=== PATIENT | female | born 1975 | race Caucasian/White ===

== ENCOUNTER 2023-10-18 01:41 | Day surgery (SDC) | payer BC, SELFPAY ==
--- NOTE | 2023-10-06 17:38 | PC.NURSE ---
Report to the Outpatient Waiting Room, entrance under the green pavilion located off [facility], at time 0900 on date 10/18/23. Planned Procedure Time: 1100. Time changes happen often and if your time is changed the preop area will call you the afternoon before. - You and your visitor will be asked to self-screen and do not enter if you have any COVID symptoms. - A mask is optional within the hospital at this time. Patients may have clear liquids (water, carbonated beverages, clear teas, apple juice) until 3 hours prior to surgery with a maximum of 20 ounces. 0800 - No food from midnight until time of surgery - Infants may have breast milk until 4 hours before surgery, formula 6 hours prior to surgery. - Children will be allowed to drink immediately following surgery. If applicable, please bring a bottle or sippy cup to assist with drinking. Juice, water, soda, and popsicles are readily available. For infants on formula, please bring formula the day of surgery. Pacifiers are allowed. Take the following medications with a SIP of water the morning of surgery: none DO NOT STOP ANY OF YOUR OTHER PRESCRIPTION MEDICATIONS PRIOR TO SURGERY ?EXCEPT THE FOLLOWING Medications to discontinue per physician multivitamins, nexium Date to take last dose Please no make-up, nail divehi, hairspray, perfume, deodorant, or body powder the day of surgery. No jewelry (including any body piercings) or valuables the day of surgery, leave them at home. Please take a shower or bath the night before, or the morning of, surgery with an antibacterial soap. Wear comfortable, loose fitting clothing. Children are encouraged to wear pajamas. - Jewelry must be removed prior to entering the operating room. Rings and piercings that are not removed may be cut off. - The hospital will not accept responsibility for valuables. - Please leave all valuables, including medications, at home the day of surgery. If you are going home after surgery, a licensed transit driver must drive you home. - NO public transportation without another adult if you receive anesthesia. - We recommend that an adult stay with you for 24 hours following discharge. - We also recommend that you do not drive, make important decision, drink alcoholic beverages, or take any drugs that were not prescribed by your health care provider for at least 24 hours after your discharge time. For Pediatric surgeries, we recommend two adults accompany the child home. Follow any additional instructions given to you from your surgeon. If you or anyone in your household have experienced Covid symptoms in the past week, please notify your surgeon or the nurse liaison at the phone number below for possible testing. Telephone instructions given to Patient- Shannon Walter and asked if any additional questions and then verbalized understanding. Patient advised to call surgeon office or pre surgery nurse liaison [phone] if any additional questions.
[2023-10-06 17:49] VITALS: BMI 41.6
--- NOTE | 2023-10-18 07:09 | P.PNAN_ITS ---
Anes - Initial Pre Proc Eval Procedure: Operation Date: 10/18/23 10:15 Proposed Procedures p Hysteroscopy Dilation and Curettage - Stephanie Friend MD Date/Time: 10/18/23 07:09 Surgeon: Stephanie Friend MD Pre Op Diagnosis: Abnormal Uterine Bleeding Patient Data Age: 48 Gender: F Height: 1.63 m Weight: 110 kg Allergies Allergy/AdvReac Type Severity Reaction Status Date / Time paroxetine Allergy Swelling Verified 10/18/23 08:12 of Lip/Tongue/Throat Home Medications Medication Instructions Recorded Confirmed Type Adults Multivitamin 1 tab-cap PO HS 10/06/23 10/06/23 History Nasacort 2 spray intranasal HS 10/06/23 10/06/23 History Zyrtec 10 mg PO HS 10/06/23 10/06/23 History esomeprazole magnesium 40 mg 40 mg PO DAILY 10/06/23 10/06/23 History capsule,delayed release famotidine 40 mg tablet 40 mg PO HS 10/06/23 10/06/23 History hydroxyzine pamoate 25 mg capsule 25 mg PO HS 10/06/23 10/06/23 History Patient hx anesthesia problems: none Family hx anesthesia problems: none Results Review: All pre-operative results and documents have been reviewed as part of the pre- operative evaluation. [facility] Past Medical History Medical History (Updated 10/18/23 @ 07:44 by Stephanie Friend MD) Anxiety GERD (gastroesophageal reflux disease) History of depression History of kidney stones History of spontaneous 2014 (normal spontaneous vaginal delivery) x2 Surgical History Surgical History (Updated 10/18/23 @ 07:43 by Stephanie Friend MD) History of cholecystectomy History of tubal ligation Social History Social History Smoking packs per day: 0.25 Smoking cigarettes per day: 5.0 Years smoked: 4 Smoking pack-years: 1.00 Smoking status: Former smoker Tobacco type: cigarettes Spiritual care concerns: No Anes - Eval Final PreProcedure Day of Procedure 10/18/23 07:09 Patient weight: morbidly obese Heart: regular rate and rhythm Lungs: clear to auscultation Airway: Mallampati scale class II Neurological: alert and oriented Last oral intake: >/= 8 hours ASA classification: II Emergent: no Anesthetic plan: proceed Anesthesia type and monitoring: general GIVS and standard monitoring Results Review: All pre-operative results and documents have been reviewed as part of the pre- operative evaluation. Informed Consent: The patient's anesthetic plan and its attendant risks and benefits were discussed with the patient/family/POA. Questions were solicited and answers provided to the satisfaction of the patient/family/POA.
--- NOTE | 2023-10-18 07:40 | P.HP_ITS ---
History of Present Illness History of Present Illness Consent: Risks, benefits, and alternatives have been discussed and questions answered. Patient agrees to proceed with procedure. Chief complaint: Abnormal Uterine Bleeding Narrative: Shannon Walter is a 48 year old female with prolonged bleeding episode. Pelvic ultrasound and blood work are normal. It was recommended to proceed with D&C hysteroscopy to evaluate the endometrium. Risks of infection, bleeding, perforation, and possible pathology are reviewed. Patient voices understanding and agrees to proceed. Review of Systems Review of Systems: not repeated day of surgery; patient states no changes in status [facility] Past Medical History Medical History (Updated 10/18/23 @ 07:44 by Stephanie Friend MD) Anxiety GERD (gastroesophageal reflux disease) History of depression History of kidney stones History of spontaneous 2014 (normal spontaneous vaginal delivery) x2 Surgical History Surgical History (Updated 10/18/23 @ 07:43 by Stephanie Friend MD) History of cholecystectomy History of tubal ligation Social History Social History Smoking packs per day: 0.25 Smoking cigarettes per day: 5.0 Years smoked: 4 Smoking pack-years: 1.00 Smoking status: Former smoker Tobacco type: cigarettes Spiritual care concerns: No Meds Home Medications and Allergies Home Medications Medication Instructions Recorded Confirmed Type Adults Multivitamin 1 tab-cap PO HS 10/06/23 10/06/23 History Nasacort 2 spray intranasal HS 10/06/23 10/06/23 History Zyrtec 10 mg PO HS 10/06/23 10/06/23 History esomeprazole magnesium 40 mg 40 mg PO DAILY 10/06/23 10/06/23 History capsule,delayed release famotidine 40 mg tablet 40 mg PO HS 10/06/23 10/06/23 History hydroxyzine pamoate 25 mg capsule 25 mg PO HS 10/06/23 10/06/23 History Allergies Allergy/AdvReac Type Severity Reaction Status Date / Time PAROXETINE HCL Allergy Severe THROAT Uncoded 02/17/12 11:40 SWELLING Exam Const: General: healthy appearing and alert Orientation/consciousness: patient oriented x3 Resp: Effort & Inspection: normal respiratory effort GI: GI Palp: Yes Soft to palpation, No Tenderness to palpation present (GI) and No Palpable mass present : External Female Exam: normal external appearance Speculum Exam - Vagina: normal appearance of the vagina and normal vaginal discharge Speculum Exam - Cervix: normal appearance of the cervix Bimanual exam- vagina & uterus: uterine size normal and consistency normal Bimanual Exam- Adnexa, other: normal adnexae and No adnexal tenderness Neuro: General: patient oriented x3 Assessment and Plan Assessment and plan (1) Menorrhagia: Code(s): N92.0 - Excessive and frequent menstruation with regular cycle Status: Acute Assessment and Plan: plan to proceed with D&C hysteroscopy
--- NOTE | 2023-10-18 07:40 | WPDHPUPDATE1 ---
History and Physical Update Update Date/Time: 10/18/23 07:40 History and Physical has been reviewed, including an updated exam of the patient. There are NO changes in the patient's condition. Risks, benefits, and alternatives have been discussed and questions answered. Patient agrees to proceed with procedure.
[2023-10-18 08:20] VITALS: BP 153/102; PULSE 89; RESP 18; TEMP 36.4; O2SAT 100
[2023-10-18] MEDS: LACTATED RINGERS 1,000 ML 30 ML IV CONT (08:30)
[2023-10-18] MEDS: ACETAMINOPHEN 500 MG TABLET 1000 MG PO (08:32)
[2023-10-18 09:20] VITALS: BP 130/81; PULSE 83
--- NOTE | 2023-10-18 10:56 | P.OP_ITS ---
Procedure Note - Detailed Date of Procedure 10/18/23 Pre-op Diagnosis Abnormal Uterine Bleeding Post-op Diagnosis Same Procedure Performed D&C hysteroscopy Surgeon Stephanie Friend MD Anesthesia General ( general IV sedation with LMA) Findings The uterus sounds to 10cm and the endometrium appears grossly normal. Description of Procedure The patient is taken to the operating room and placed under anesthesia in the dorsal lithotomy position. She was prepped and draped in usual sterile fashion. [place] speculum was placed in the vagina and the cervix grasped on the anterior lip with a tenaculum. The uterus is sounded to 10cm. The diagnostic hysteroscope was placed and the endometrium appears grossly normal . The hysteroscope was removed. The sharp curette is used to curette the endometrium until a good uterine cry was noted in all areas. All instruments are removed. Sponge, needle, and instrument counts are correct per the OR staff. The patient was awakened from anesthesia and taken to recovery in stable condition. Estimated Blood Loss 5 Drains No Packing No Pathology Yes ( Endometrial curettings) Complications No immediate complications Condition Stable Disposition PACU
[2023-10-18 10:59] VITALS: BP 136/82; PULSE 107; RESP 16; O2SAT 98
[2023-10-18 11:30] VITALS: BP 137/86; PULSE 92; RESP 16; O2SAT 97
[2023-10-18] MEDS: ONDANSETRON INJ 4 MG/2 ML VIAL IV PUSH (11:56)
[2023-10-18 12:00] VITALS: BP 149/104; PULSE 90; RESP 16
[2023-10-18 12:15] VITALS: BP 142/95; PULSE 84; RESP 16
== END 2023-10-18 12:35 | disposition home or self-care (01) ==
PROVIDERS: Visit Provider Obstetrics & Gynecology Gynecology
PROC: 0U5B8ZZ Destruction of Endometrium, Via Natural or Artificial Opening Endoscopic (ICD-10-PCS; CPT 58563; principal; 2023-10-18 10:15)
DX: N92.0 Excessive and frequent menstruation with regular cycle (principal); K21.9 Gastro-esophageal reflux disease without esophagitis; Z87.891 Personal history of nicotine dependence; E66.01 Morbid (severe) obesity due to excess calories; Z68.38 Body mass index [BMI] 38.0-38.9, adult
CPT/HCPCS: 58558; 88305; A9270; J1100; J1885; J2250; J2405; J2704; J3010; J7120

== ENCOUNTER 2024-07-24 02:30 | Day surgery (SDC) | payer BC, SELFPAY ==
[2024-07-11 13:38] VITALS: BMI 40.7
--- NOTE | 2024-07-11 13:48 | SUR.PREOP ---
Report to the Outpatient Waiting Room, entrance under the green pavilion located off [facility], at time 6:00a.m. on date 07/24/2024. Planned Procedure Time: 7:30a.m.? Time changes happen often and if your time is changed the preop area will call you the afternoon before. - You and your visitor will be asked to self-screen and do not enter if you have any COVID symptoms. Please call surgeon if you need to reschedule. - A mask is optional within the hospital at this time. Patients may have clear liquids (water, carbonated beverages, clear teas, apple juice) until 3 hours prior to surgery with a maximum of 20 ounces. - No food from midnight until time of surgery and no smoking - Infants may have breast milk until 4 hours before surgery, infant formula 6 hours prior to surgery. - Children will be allowed to drink immediately following surgery.? If applicable, please bring a bottle or sippy cup to assist with drinking. Juice, water, soda, and popsicles are readily available.? For infants on formula, please bring formula the day of surgery.? Pacifiers are allowed. Take only the following medications with a SIP of water on the morning of surgery: N/A DO NOT STOP ANY OF YOUR OTHER PRESCRIPTION MEDICATIONS PRIOR TO SURGERY EXCEPT THE FOLLOWING Medications to discontinue per physician Vitamins and supplements Date to take last dose 07/24/2024 Please no make-up, nail georgian, hairspray, perfume, deodorant, or body powder the day of surgery.? No jewelry (including any body piercings) or valuables the day of surgery, leave them at home.? Please take a shower or bath the night before, or the morning of, surgery with an antibacterial soap.? Wear comfortable, loose fitting clothing.? Children are encouraged to wear pajamas. - Jewelry must be removed prior to entering the operating room.? Rings and piercings that are not removed may be cut off. - The hospital will not accept responsibility for valuables.? - Please leave all valuables, including medications, at home the day of surgery. If you are going home after surgery, a licensed peg driver must drive you home.? - NO public transportation without another adult if you receive anesthesia. - We recommend that an adult stay with you for 24 hours following discharge. - We also recommend that you do not drive, make important decision, drink alcoholic beverages, or take any drugs that were not prescribed by your health care provider for at least 24 hours after your discharge time. For Pediatric surgeries, we recommend two adults accompany the child home. Follow any additional instructions given to you from your surgeon. Telephone instructions given to Shannon Walter and asked if any additional questions and then verbalized understanding. Patient advised to call surgeon office or pre surgery nurse liaison [phone] if any additional questions.
[2024-07-24] MEDS: LACTATED RINGERS 1,000 ML 30 ML IV CONT (06:30)
[2024-07-24] MEDS: ACETAMINOPHEN 500 MG TABLET 1000 MG PO (06:30)
--- NOTE | 2024-07-24 06:48 | WPDANESEPPF ---
Anes - Initial Pre Proc Eval Procedure: Operation Date: 07/24/24 07:30 Proposed Procedures p Hysteroscopy, Cookie Endometrial Ablation - Stephanie Friend MD Date/Time: 07/24/24 06:48 Surgeon: Stephanei Friend MD Pre Op Diagnosis: cecil Patient Data Age: 48 Gender: F Height: 1.6 m Weight: 104.3 kg Allergies Allergy/AdvReac Type Severity Reaction Status Date / Time paroxetine Allergy Swelling Verified 03/23/24 13:56 of Lip/Tongue/Throat Home Medications Medication Instructions Recorded Confirmed Type Adults Multivitamin 1 tab-cap PO HS 10/06/23 07/11/24 History Nasacort 2 spray intranasal HS 10/06/23 07/11/24 History Zyrtec 10 mg PO HS 10/06/23 07/11/24 History esomeprazole magnesium 40 mg 40 mg PO DAILY 10/06/23 07/11/24 History capsule,delayed release famotidine 40 mg tablet 40 mg PO HS 10/06/23 07/11/24 History hydroxyzine pamoate 25 mg capsule 75 mg PO HS 10/06/23 07/11/24 History cyanocobalamin (vitamin B-12) 500 500 mcg PO DAILY 03/23/24 07/11/24 History mcg lozenges (Vitamin B-12) Vitamin D3 2,000 units PO DAILY 07/11/24 07/11/24 History magnesium glycinate 100 mg (as 400 mg PO DAILY 07/11/24 07/11/24 History glycinate) tablet Patient hx anesthesia problems: post op nausea/vomiting Family hx anesthesia problems: none Results Review: All pre-operative results and documents have been reviewed as part of the pre-operative evaluation. FORMERLY [facility], [facility] Past Medical History Medical History Anxiety GERD (gastroesophageal reflux disease) History of depression History of kidney stones History of spontaneous 2014 (normal spontaneous vaginal delivery) x2 Surgical History Surgical History History of cholecystectomy History of tubal ligation Social History Social History Smoking packs per day: 0.25 Smoking cigarettes per day: 5.0 Years smoked: 5 Smoking pack-years: 1.25 Smoking status: Former smoker Tobacco type: cigarettes Additional smoking assessment comments: ocassional smoking in her 20s Alcohol intake: current Alcohol use details: Maybe one drink a month Substance use: never Substance use type: does not use Last use: 2001 Living arrangements: with family Spiritual care concerns: No Anes - Eval Final PreProcedure Day of Procedure 07/24/24 06:48 Patient weight: obese Heart: regular rate and rhythm Lungs: clear to auscultation Airway: Mallampati scale class II Neurological: alert and oriented ASA classification: III Emergent: no Anesthetic plan: proceed Anesthesia type and monitoring: general GIVS and standard monitoring Results Review: All pre-operative results and documents have been reviewed as part of the pre-operative evaluation. Obesity, pt states that she can walk 1-2 fos, no cp or sob. Informed Consent: The patient's anesthetic plan and its attendant risks and benefits were discussed with the patient/family/POA. Questions were solicited and answers provided to the satisfaction of the patient/family/POA.
[2024-07-24 07:00] VITALS: BP 150/97; PULSE 98; RESP 16; TEMP 36.1; O2SAT 100
--- NOTE | 2024-07-24 07:25 | WPDHPUPDATE1 ---
History and Physical Update Update Date/Time: 07/24/24 07:25 History and Physical has been reviewed, including an updated exam of the patient. There are NO changes in the patient's condition. Risks, benefits, and alternatives have been discussed and questions answered. Patient agrees to proceed with procedure.
--- NOTE | 2024-07-24 07:25 | PM.HPGS ---
History of Present Illness History of Present Illness Consent: Risks, benefits, and alternatives have been discussed and questions answered. Patient agrees to proceed with procedure. Chief complaint: menorraghia Narrative: Shannon Walter is a 48 year old female with menorrhagia. Patient underwent D&C hysteroscopy with benign findings. Options were discussed with the patient she initially decided to observe. Patient decided to proceed with Cookie endometrial ablation. Risks of infection, bleeding, perforation, and failure were reviewed. Patient voices understanding and agrees to proceed. Review of Systems Review of Systems: not repeated day of surgery; patient states no changes in status [facility] Past Medical History Medical History Anxiety GERD (gastroesophageal reflux disease) History of depression History of kidney stones History of spontaneous 2014 (normal spontaneous vaginal delivery) x2 Surgical History Surgical History (Updated 07/24/24 @ 07:27 by Stephanie Friend MD) History of cholecystectomy History of hysteroscopy History of tubal ligation Social History Social History Smoking packs per day: 0.25 Smoking cigarettes per day: 5.0 Years smoked: 5 Smoking pack-years: 1.25 Smoking status: Former smoker Tobacco type: cigarettes Additional smoking assessment comments: ocassional smoking in her 20s Alcohol intake: current Alcohol use details: Maybe one drink a month Substance use: never Substance use type: does not use Last use: 2001 Living arrangements: with family Spiritual care concerns: No Meds Home Medications and Allergies Home Medications Medication Instructions Recorded Confirmed Type Adults Multivitamin 1 tab-cap PO HS 10/06/23 07/11/24 History Nasacort 2 spray intranasal HS 10/06/23 07/11/24 History Zyrtec 10 mg PO HS 10/06/23 07/11/24 History esomeprazole magnesium 40 mg 40 mg PO DAILY 10/06/23 07/11/24 History capsule,delayed release famotidine 40 mg tablet 40 mg PO HS 10/06/23 07/11/24 History hydroxyzine pamoate 25 mg capsule 75 mg PO HS 10/06/23 07/11/24 History cyanocobalamin (vitamin B-12) 500 500 mcg PO DAILY 03/23/24 07/11/24 History mcg lozenges (Vitamin B-12) Vitamin D3 2,000 units PO DAILY 07/11/24 07/11/24 History magnesium glycinate 100 mg (as 400 mg PO DAILY 07/11/24 07/11/24 History glycinate) tablet Allergies Allergy/AdvReac Type Severity Reaction Status Date / Time paroxetine Allergy Swelling Verified 03/23/24 13:56 of Lip/Tongue/Throat Exam Const: General: healthy appearing and alert Orientation/consciousness: patient oriented x3 Resp: Effort & Inspection: normal respiratory effort Auscultation: clear to auscultation bilaterally Cardio: Rate: regular rate Rhythm: regular rhythm GI: GI Palp: Yes Soft to palpation, No Tenderness to palpation present (GI) and No Palpable mass present : External Female Exam: normal external appearance Speculum Exam - Vagina: normal appearance of the vagina and normal vaginal discharge Speculum Exam - Cervix: normal appearance of the cervix Bimanual exam- vagina & uterus: uterine size normal and consistency normal Bimanual Exam- Adnexa, other: normal adnexae and No adnexal tenderness Neuro: General: patient oriented x3 Assessment and Plan Assessment and plan (1) Menorrhagia: Code(s): N92.0 - Excessive and frequent menstruation with regular cycle Status: Acute Assessment and Plan: plan to proceed with Cookie endometrial ablation
--- NOTE | 2024-07-24 07:28 | WPDHPUPDATE1 ---
History and Physical Update Update Date/Time: 07/24/24 07:28 History and Physical has been reviewed, including an updated exam of the patient. There are NO changes in the patient's condition. Risks, benefits, and alternatives have been discussed and questions answered. Patient agrees to proceed with procedure.
[2024-07-24] MEDS: LIDOCAINE HCL 1% LOCAL INJ 10 ML VIAL INFILTRATE (07:38)
[2024-07-24 07:48] LABS: BEDSIDEPREGUCG Negative (Negative)
--- NOTE | 2024-07-24 07:57 | P.OP_ITS ---
Procedure Note - Detailed Date of Procedure 07/24/24 Pre-op Diagnosis menorraghia Post-op Diagnosis Same Procedure Performed Cookie endometrial ablation Surgeon Stephanie Friend MD Anesthesia MAC and Local Findings uterus sounds to 10cm and appears grossly normal Description of Procedure The patient is taken to the operating room and placed under anesthesia in the dorsal lithotomy position. She was prepped and draped in the usual sterile fashion. [place] speculum was placed in the vagina and the cervix grasped on the anterior lip with a tenaculum. The uterus is sounded to 10cm. The diagnostic hysteroscope was placed and with no abnormalities noted the Cookie device is opened. Cervix was injected in each quadrant with 1% lidocaine. The cervix was serially dilated to an 8 [place]. The Cookie device is opened and placed initially at a setting of 6cm. The device remained in the [place] not open fully. The device was removed and reset for 5.5cm. The device opened and was set. Cavity assessment passed on the 1st attempt. Cookie ablation was performed for the full 2minutes. The device is then removed and the hysteroscope placed with good ablation effect noted. All instruments were then removed. Sponge, needle, and instrument counts are correct per the OR staff. The patient was awakened from anesthesia and taken to recovery in stable condition. Estimated Blood Loss 5 Drains No Packing No Pathology None sent Complications No immediate complications Condition Stable Disposition PACU
[2024-07-24 08:00] VITALS: BP 134/81; PULSE 113; RESP 18; O2SAT 98
[2024-07-24 08:30] VITALS: BP 150/85; PULSE 88; RESP 17; O2SAT 100
[2024-07-24] MEDS: ONDANSETRON INJ 4 MG/2 ML VIAL IV PUSH (08:34)
[2024-07-24] MEDS: oxyCODONE HCL (*CRX) 5 MG TAB IR PO (08:36)
[2024-07-24 09:11] VITALS: BP 145/86; PULSE 89; RESP 18; O2SAT 100
[2024-07-24 09:24] VITALS: BP 147/84; PULSE 97; RESP 18; O2SAT 100
== END 2024-07-24 09:25 | disposition home or self-care (01) ==
PROVIDERS: Visit Provider Obstetrics & Gynecology Gynecology
PROC: 0U5B8ZZ Destruction of Endometrium, Via Natural or Artificial Opening Endoscopic (ICD-10-PCS; CPT 58563; principal; 2024-07-24 07:30)
DX: N92.0 Excessive and frequent menstruation with regular cycle (principal); E66.9 Obesity, unspecified; Z68.41 Body mass index [BMI] 40.0-44.9, adult
CPT/HCPCS: 58563; A9270; J2003; J2250; J2405; J2704; J3010; J7030; J7120